=== PATIENT | female | born 1970 | race Caucasian/White ===

== ENCOUNTER → 2019-09-26 | Outpatient (CLI) | payer OTHER ==
[~2019-09-26] MED LIST: ALBIPROI; AMOX500 PO; Carbamazepine100 MG PO; DILT30 PO; HYDACE5 PO; IBUP600 PO; IPRAOI; MELO7.5 PO; MONT10T PO; Norco 5-325 Ta1 EACH PO; PENVK500 PO; POTCHL20ER PO; SIMV40 PO; TOPI100; TRIAOI; VENL75ER PO
[2019-09-28 14:07] LABS: HPV 16 Negative (Negative); HPV 18 Negative (Negative); HPV OTHER HR TYPES Negative (Negative)
== END | disposition home or self-care (01) ==
LOC: LAB 11:15 → LAB SHORT 11:15
PROVIDERS: Obstetrics & Gynecology
DX: Z01.419 Encounter for gynecological examination (general) (routine) without abnormal findings (principal)
CPT/HCPCS: 87624; G0123

== ENCOUNTER → 2019-11-12 | Outpatient (CLI) | payer OTHER | LOC: LAB 13:05 → LAB SHORT 13:05 | DX: N39.0 Urinary tract infection, site not specified (principal); R10.9 Unspecified abdominal pain | CPT/HCPCS: 87077; 87086; 87186 ==

== ENCOUNTER → 2019-12-14 | Outpatient (CLI) | payer OTHER | END | disposition home or self-care (01) | LOC: LAB 14:20 → LAB SHORT 14:20 | DX: R82.90 Unspecified abnormal findings in urine (principal) | CPT/HCPCS: 87077; 87086; 87186 ==

== ENCOUNTER 2022-09-29 08:35 | Day surgery (SDC) | payer OTHER ==
[~2022-09-29] VITALS: Ht 154.9 cm; Wt 68.9 kg
[2022-09-29] MEDS ORDERED: PRAZ1 (09:44)
[2022-09-29] MEDS ORDERED: CARAFATE1 GM (09:44)
[2022-09-29] MEDS ORDERED: ATOR20 (09:44)
[2022-09-29] MEDS ORDERED: MAVYRET 100-401 EAC1 (09:44)
[2022-09-29] MEDS ORDERED: SUMA6I (09:45)
[2022-09-29] MEDS ORDERED: VENL75ER (09:45)
== END 2022-09-29 10:52 | disposition home or self-care (01) ==
LOC: ORSCSDS 08:35
PROVIDERS: Internal Medicine Gastroenterology
PROC: 0DBE8ZX Excision of Large Intestine, Via Natural or Artificial Opening Endoscopic, Diagnostic (ICD-10-PCS; principal; 2022-09-29 10:15)
PROC: 0DBL8ZX Excision of Transverse Colon, Via Natural or Artificial Opening Endoscopic, Diagnostic (ICD-10-PCS; principal; 2022-09-29 10:15)
DX: R10.9 Unspecified abdominal pain (principal); Z83.71 Family history of colonic polyps; R15.9 Full incontinence of feces; R19.7 Diarrhea, unspecified; D12.3 Benign neoplasm of transverse colon; B19.20 Unspecified viral hepatitis C without hepatic coma; I10 Essential (primary) hypertension; E78.5 Hyperlipidemia, unspecified; J44.9 Chronic obstructive pulmonary disease, unspecified; F32.A Depression, unspecified; Z87.891 Personal history of nicotine dependence; Z79.899 Other long term (current) drug therapy
CPT/HCPCS: 82947; 88305; J2704; J7120

== ENCOUNTER 2022-12-07 17:57 | Emergency (ER) | payer OTHER ==
[~2022-12-07] VITALS: Ht 154.9 cm; Wt 74.8 kg
[~2022-12-07 17:57] MED LIST changes: +ATOR20; +CARAFATE1 GM; +MAVYRET 100-401 EAC1; +PRAZ1; +SUMA6I; +VENL75ER
== END 2022-12-07 20:07 | disposition home or self-care (01) ==
LOC: ER 17:57
DX: S20.211A Contusion of right front wall of thorax, initial encounter (principal); J44.9 Chronic obstructive pulmonary disease, unspecified; W07.XXXA Fall from chair, initial encounter; Z88.2 Allergy status to sulfonamides; Z79.899 Other long term (current) drug therapy; Z87.891 Personal history of nicotine dependence
CPT/HCPCS: 71046; 96372; 99283-25; A9270; J1885

== ENCOUNTER → 2024-11-30 | Outpatient (CLI) | payer OTHER ==
[~2024-11-30] MED LIST changes: +ALBU90OI INH; -ATOR20; +ATOR20 PO; +ATROVENT HFA12.9 GM INH; -CARAFATE1 GM; -DILT30 PO; +GABA100; +IMITREX50 M1 PO; -MELO7.5 PO; +Mobic15 MG PO; -PRAZ1; +PRAZ1 PO; +SUCR1 PO; -SUMA6I; -VENL75ER; +[UNRECOGNIZED DRUG - CODE] PO
[2024-11-30 13:18] LABS: Adenovirus Not Detected (NOT DETECT); Bordetella pertussis Not Detected (NOT DETECT); Chlamydophila pneumoniae Not Detected (NOT DETECT); Coronavirus 229E Not Detected (NOT DETECT); Coronavirus HKU1 Not Detected (NOT DETECT); Coronavirus NL63 Not Detected (NOT DETECT); Coronavirus OC43 Not Detected (NOT DETECT); Human Metapneumovirus Not Detected (NOT DETECT); Human Rhinovirus/Enterovirus Not Detected (NOT DETECT); Influenza A/2009-H1 Not Detected (NOT DETECT); Influenza A/H1 Not Detected (NOT DETECT); Influenza A/H3 Not Detected (NOT DETECT); Influenza B Not Detected (NOT DETECT); Mycoplasma pneumoniae Not Detected (NOT DETECT); Parainfluenza Virus 1 Not Detected (NOT DETECT); Parainfluenza Virus 2 Not Detected (NOT DETECT); Parainfluenza Virus 3 Not Detected (NOT DETECT); Parainfluenza Virus 4 Not Detected (NOT DETECT); Respiratory Syncytial Virus Not Detected (NOT DETECT); SARS-Cov-2 (COVID-19), BioFire Not Detected (NOT DETECT)
== END ==
LOC: LAB SHORT 11:13 → LAB 11:13
PROVIDERS: Nurse Practitioner Family
DX: R50.9 Fever, unspecified (principal)
CPT/HCPCS: 0202U

== ENCOUNTER → 2025-04-07 | Outpatient (CLI) | payer OTHER | LOC: LAB 17:48 → LAB SHORT 17:48 | DX: S90.562A Insect bite (nonvenomous), left ankle, initial encounter (principal) | CPT/HCPCS: 87070; 87077; 87147; 87186; 87205 ==

== ENCOUNTER → 2025-07-09 | Outpatient (CLI) | payer OTHER | LOC: LAB 17:00 → LAB SHORT 17:00 | DX: L02.91 Cutaneous abscess, unspecified (principal); R30.0 Dysuria | CPT/HCPCS: 87070; 87077; 87086; 87186; 87205 ==